=== PATIENT | male | born 1975 | race Caucasian/White ===

== ENCOUNTER 2021-10-15 16:15 | Emergency (ER) | payer MEDICARE, MEDICAID, SELFPAY ==
[2021-10-15 16:23] VITALS: BP 129/95; PULSE 100; RESP 14; TEMP 36.7; O2SAT 98; BMI 34.7
--- NOTE | 2021-10-15 16:36 | PC.NURSE ---
security called to bedside upon pt arrival. this rn and md to room and pt eloped.
== END 2021-10-15 17:03 | disposition left against medical advice (07) ==
LOC: HO.ED 17:01
PROVIDERS: Emergency Provider Emergency Medicine
DX: T40.1X1A Poisoning by heroin, accidental (unintentional), initial encounter (principal); Y92.9 Unspecified place or not applicable; Z71.51 Drug abuse counseling and surveillance of drug abuser
CPT/HCPCS: 99281; 99284